=== PATIENT | male | born 1975 | race Caucasian/White ===

== ENCOUNTER 2020-04-11 23:27 | Emergency (ER) | payer OTHER ==
[2020-04-12 00:02] LABS: Absolute Lymphocytes (CBC) 3.3 K/uL (0.7-4.9); Hematocrit 45.6 % (39.6-49.0); Lymphocytes % 36.1 % (15.3-44.8); MPV 7.6 fL (7.6-11.3); RBC Red Blood Cell Count 5.24 M/uL (4.33-5.43)
[2020-04-12 00:17] LABS: ALT/SGPT 42 U/L (12-78); AST/SGOT 19 U/L (15-37); Alkaline Phosphatase 101 U/L (45-117); BUN Blood Urea Nitrogen 14 mg/dL (7-18); Bicarbonate 32 mmol/L (21-32); Bilirubin Direct < 0.1 mg/dL (0-0.2); Bilirubin Total 0.3 mg/dL (0.2-1.0); Glucose Level 93 mg/dL (74-106); Lipase 210 U/L (73-393); Potassium 4.3 mmol/L (3.5-5.1); Sodium Level 141 mmol/L (136-145)
[2020-04-12] MEDS ORDERED: HYDROCORTISONE ACETATE 25MG SUPP PR ONE (00:30)
[2020-04-12] MEDS ORDERED: NA CHLORIDE 0.9% 1,000 ML ONE (00:40)
[2020-04-12 04:08] LABS: Absolute Lymphocytes (CBC) 2.6 K/uL (0.7-4.9); Basophils % 0.7 % (0-1.3); Hematocrit 42.9 % (39.6-49.0); Lymphocytes % 28.2 % (15.3-44.8); RBC Red Blood Cell Count 4.89 M/uL (4.33-5.43)
--- NOTE | 2020-04-12 05:46 | ER ---
Nurse's Notes [facility] Name: Bob Mueller Age: 44 yrs Sex: Male : 1975 Arrival Date: 04/11/2020 Time: 23:31 Bed 2 Private MD: Diagnosis: Rectal bleeding. Prolapsed hemorrhoids Presentation: 04/11 23:43 Chief complaint: Patient states: he has hemorrhoids and supposed to be for sx with Dr jeff Mckoy on Tuesday but feels like it ruptured an hour ago, bleeding with clots was observed while he is on shower. Coronavirus screen: Client denies travel out of the [place] in the last 14 days. Ebola Screen: No symptoms or risks identified at this time. Initial Sepsis Screen: Does the patient meet any 2 criteria? No. Patient's initial sepsis screen is negative. Does the patient have a suspected source of infection? No. Patient's initial sepsis screen is negative. Risk Assessment: Do you want to hurt yourself or someone else? Patient reports no desire to harm self or others. Onset of symptoms was April 11, 2020. 23:43 Method Of Arrival: Ambulatory mg2 23:43 Acuity: KARISHMA 3 mg2 Triage Assessment: 23:45 General: Appears in no apparent distress. comfortable, Behavior is calm, cooperative. mg2 Pain: Complains of pain in anal area. EENT: No signs and/or symptoms were reported regarding the EENT system. Neuro: Level of Consciousness is awake, alert, obeys commands, Oriented to person, place, time, situation. Cardiovascular: Capillary refill < 3 seconds Patient's skin is warm and dry. Respiratory: Airway is patent Respiratory effort is even, unlabored, Respiratory pattern is regular, symmetrical. GI: Reports rectal bleeding. : No signs and/or symptoms were reported regarding the genitourinary system. Derm: Skin is intact, is healthy with good turgor, Skin is pink, warm \T\ dry. normal. Musculoskeletal: Circulation, motion, and sensation intact. Capillary refill < 3 seconds. Historical: - Allergies: 23:45 No Known Allergies; mg2 - Home Meds: 23:45 vitamins [Active]; mg2 - PMHx: 23:45 None; mg2 - PSHx: 23:45 None; mg2 - Immunization history:: Flu vaccine status is unknown. - Social history:: Smoking status: Patient denies any tobacco usage or history of. Patient uses alcohol, only on a social basis. Patient/guardian denies using street drugs, IV drugs. Screenin:46 Abuse screen: Denies threats or abuse. Denies injuries from another. Nutritional mg2 screening: No deficits noted. Tuberculosis screening: No symptoms or risk factors identified. Fall Risk IV access (20 points). Assessment: 23:46 Reassessment: see triage assessment. mg2 04/12 00:30 Reassessment: pressure packing applied on the rectal area. moderate bleeding noted as mg2 the provider was trying to do rectal exam. 01:00 Reassessment: Patient appears in no apparent distress at this time. Patient and/or mg2 family updated on plan of care and expected duration. Pain level reassessed. Patient is alert, oriented x 3, equal unlabored respirations, skin warm/dry/pink. provider advised to observe the patient's rectal bleeding for 3 hours. 02:20 Reassessment: Patient appears in no apparent distress at this time. Patient is alert, rr5 oriented x 3, equal unlabored respirations, skin warm/dry/pink. no complaints made. 03:23 Reassessment: Patient appears in no apparent distress at this time. Patient is alert, rr5 oriented x 3, equal unlabored respirations, skin warm/dry/pink. repeat CBC extracted and sent. no signs of bleeding noted. 04:30 Reassessment: Patient appears in no apparent distress at this time. No changes from rr5 previously documented assessment. 05:12 Reassessment: scant bleeding noted in the rectal area. mg2 05:51 Reassessment: Patient appears in no apparent distress at this time. Patient is alert, rr5 oriented x 3, equal unlabored respirations, skin warm/dry/pink. reassess by ED provider with order for discharge.discharge instruction given and explained without complaints made Patient states feeling better. Patient states symptoms have improved. Vital Signs: 04/11 23:43 BP 142 / 95; Pulse 79; Resp 18; Temp 98.1; Pulse Ox 100% on R/A; Weight 99.79 kg; mg2 Height 5 ft. 9 in. (175.26 cm); Pain 3/10; 04/12 00:54 BP 129 / 79; Pulse 66; Resp 18; Pulse Ox 98% on R/A; mg2 02:30 BP 125 / 80; Pulse 60; Resp 17; Pulse Ox 98% ; rr5 03:22 BP 130 / 82; Pulse 69; Resp 16; Pulse Ox 98% ; rr5 04:26 BP 120 / 74; Pulse 63; Resp 18; Pulse Ox 97% on R/A; mg2 05:52 BP 128 / 75; Pulse 65; Resp 16; Temp 97.9; Pulse Ox 99% ; rr5 04/11 23:43 Body Mass Index 32.49 (99.79 kg, 175.26 cm) mg2 ED Course: 04/11 23:31 Patient arrived in ED. ds1 23:35 Wayne Hess, RN is Primary Nurse. mg2 23:45 Triage completed. mg2 23:45 Arm band placed on. mg2 23:46 Patient has correct armband on for positive identification. Pulse ox on. NIBP on. Door mg2 closed. Warm blanket given. 23:50 Rubén Aquino MD is Attending Physician. pkl 23:53 No provider procedures requiring assistance completed. Inserted saline lock: 18 gauge rr5 in left antecubital area, using aseptic technique. Blood collected. 04/12 04:06 CT Abd/Pelvis - IV Contrast Only In Process Unspecified. EDMS 05:52 IV discontinued, intact, bleeding controlled, No redness/swelling at site. Pressure rr5 dressing applied. Administered Medications: 00:22 Drug: Anusol-HC 25 mg 25 mg Route: OK; mg2 00:52 Follow up: Response: No adverse reaction; Marked relief of symptoms mg2 00:28 Drug: NS 0.9% 500 ml Route: IV; Rate: bolus; Site: left antecubital; mg2 01:30 Follow up: Response: No adverse reaction; IV Status: Completed infusion; IV Intake: rr5 500ml 01:00 Drug: NS 0.9% 500 ml Route: IV; Rate: 125 ml/hr; Site: left antecubital; mg2 05:53 Follow up: Response: No adverse reaction; IV Status: Completed infusion; IV Intake: rr5 500ml Intake: 01:30 IV: 500ml; Total: 500ml. rr5 05:53 IV: 500ml; Total: 1000ml. rr5 Outcome: 05:45 Discharge ordered by . pkl 05:52 Discharged to home ambulatory, with family. rr5 05:52 Condition: stable 05:52 Discharge instructions given to patient, Instructed on discharge instructions, follow up and referral plans. medication usage, Demonstrated understanding of instructions, follow-up care, Prescriptions given X 1. 05:53 Patient left the ED. rr5 Signatures: Dispatcher [employer] EDMS Rubén Aquino MD MD pkl Sanford, Demi ds1 Wayne Hess RN RN mg2 Gareth Ferro RN RN rr5 Corrections: (The following items were deleted from the chart) 04:27 04:26 Pulse 63bpm; Resp 18bpm; Pulse Ox 97% RA; mg2 mg2
--- NOTE | 2020-04-12 05:46 | EDPHYS ---
Physician Documentation [facility] Name: Bob Mueller Age: 44 yrs Sex: Male : 1975 Arrival Date: 04/11/2020 Time: 23:31 Bed 2 Private MD: ED Physician Rubén Aquino HPI: 04/12 00:27 This 44 yrs old Male presents to ER via Ambulatory with complaints of Rectal pkl Bleeding. 00:27 The patient presents to the emergency department with bleeding from the rectum/anus, pkl that is moderate. Onset: The symptoms/episode began/occurred just prior to arrival, 1 hour(s) ago. Patient scheduled for a procedure with Dr. Mckoy on Tuesday04/18/20. Tonight his hemorrhoids ruptured and started having rectal bleeding.. Historical: - Allergies: 04/11 23:45 No Known Allergies; mg2 - Home Meds: 23:45 vitamins [Active]; mg2 - PMHx: 23:45 None; mg2 - PSHx: 23:45 None; mg2 - Immunization history:: Flu vaccine status is unknown. - Social history:: Smoking status: Patient denies any tobacco usage or history of. Patient uses alcohol, only on a social basis. Patient/guardian denies using street drugs, IV drugs. ROS: 04/12 00:27 Eyes: Negative for injury, pain, redness, and discharge, ENT: Negative for injury, pkl pain, and discharge, Neck: Negative for injury, pain, and swelling, Cardiovascular: Negative for chest pain, palpitations, and edema, Respiratory: Negative for shortness of breath, cough, wheezing, and pleuritic chest pain. Abdomen/GI: Positive for rectal bleeding. Back: Negative for acute changes. : Negative for urinary symptoms. MS/extremity: Negative for acute changes. Skin: Negative for rash. Neuro: Negative for altered mental status, loss of consciousness. Exam: 00:27 Head/Face: Normocephalic, atraumatic. Eyes: Pupils equal round and reactive to light, pkl extra-ocular motions intact. Lids and lashes normal. Conjunctiva and sclera are non-icteric and not injected. Cornea within normal limits. Periorbital areas with no swelling, redness, or edema. ENT: Nares patent. No nasal discharge, no septal abnormalities noted. Tympanic membranes are normal and external auditory canals are clear. Oropharynx with no redness, swelling, or masses, exudates, or evidence of obstruction, uvula midline. Mucous membranes moist. Neck: Trachea midline, no thyromegaly or masses palpated, and no cervical lymphadenopathy. Supple, full range of motion without nuchal rigidity, or vertebral point tenderness. No Meningismus. Chest/axilla: Normal chest wall appearance and motion. Nontender with no deformity. No lesions are appreciated. Cardiovascular: Regular rate and rhythm with a normal S1 and S2. No gallops, murmurs, or rubs. Normal PMI, no JVD. No pulse deficits. Respiratory: Lungs have equal breath sounds bilaterally, clear to auscultation and percussion. No rales, rhonchi or wheezes noted. No increased work of breathing, no retractions or nasal flaring. 00:27 Abdomen/GI: Bowel sounds: normal, Palpation: abdomen is soft and non-tender, in all quadrants, Rectal exam: hemorrhoid(s), with associated bleeding, Prolapsed hemorrhoids reduced. Anusol HC suppository inserted. Moderate rectal bleeding noted. Vital Signs: 04/11 23:43 BP 142 / 95; Pulse 79; Resp 18; Temp 98.1; Pulse Ox 100% on R/A; Weight 99.79 kg; mg2 Height 5 ft. 9 in. (175.26 cm); Pain 3/10; 04/12 00:54 BP 129 / 79; Pulse 66; Resp 18; Pulse Ox 98% on R/A; mg2 02:30 BP 125 / 80; Pulse 60; Resp 17; Pulse Ox 98% ; rr5 03:22 BP 130 / 82; Pulse 69; Resp 16; Pulse Ox 98% ; rr5 04:26 BP 120 / 74; Pulse 63; Resp 18; Pulse Ox 97% on R/A; mg2 05:52 BP 128 / 75; Pulse 65; Resp 16; Temp 97.9; Pulse Ox 99% ; rr5 04/11 23:43 Body Mass Index 32.49 (99.79 kg, 175.26 cm) mg2 MDM: 04/11 23:50 Patient medically screened. pkl 04/12 00:50 Data reviewed: vital signs, nurses notes. ED course: Talked to Dr. Mckoy, said he is pkl not human performance consultant and will not be available this weekend.. 05:40 ED course: Patient feeling better. Rectal bleeding controlled. Discussed lab and CT pkl Scan result with patient. Advised to follow up with G.I. or Surgeon of his choice in 1 to 2 days. To return if necessary. Patient understood instructions. 04/11 23:48 Order name: Basic Metabolic Panel; Complete Time: 00:22 mg2 04/11 23:48 Order name: CBC with Diff; Complete Time: 00:22 mg2 04/11 23:48 Order name: Hepatic Function; Complete Time: 00:22 mg2 04/11 23:48 Order name: Lipase; Complete Time: 00:22 mg2 04/12 03:17 Order name: CBC with Diff; Complete Time: 04:33 pkl 04/11 23:48 Order name: IV Saline Lock; Complete Time: 23:48 mg2 04/11 23:48 Order name: Labs collected and sent; Complete Time: 23:48 mg2 04/12 03:17 Order name: CT Abd/Pelvis - IV Contrast Only pkl Administered Medications: 00:22 Drug: Anusol-HC 25 mg 25 mg Route: UT; mg2 00:52 Follow up: Response: No adverse reaction; Marked relief of symptoms mg2 00:28 Drug: NS 0.9% 500 ml Route: IV; Rate: bolus; Site: left antecubital; mg2 01:30 Follow up: Response: No adverse reaction; IV Status: Completed infusion; IV Intake: rr5 500ml 01:00 Drug: NS 0.9% 500 ml Route: IV; Rate: 125 ml/hr; Site: left antecubital; mg2 05:53 Follow up: Response: No adverse reaction; IV Status: Completed infusion; IV Intake: rr5 500ml Disposition: 04/12/20 05:45 Discharged to Home. Impression: Rectal bleeding. Prolapsed hemorrhoids. - Condition is Stable. - Prescriptions for Anusol- HC 25 mg Rectal Suppository - insert 1 suppository by RECTAL route every 12 hours As needed; 20 suppository. - Medication Reconciliation Form, Thank You Letter, Antibiotic Education, Prescription Opioid Use, Work release form form. - Follow up: Private Physician; When: 1 - 2 days; Reason: Re-evaluation by your physician. - Problem is new. - Symptoms have improved. Signatures: Dispatcher [employer] EDMS Rubén Aquino MD MD pkl Wayne Hses, RN RN mg2 Gareth Ferro RN RN rr5 Corrections: (The following items were deleted from the chart) 00:17 04/11 23:49 TYPE AND SCREEN+[id number] ordered. EDTN EDMS 04/12 05:53 05:45 04/12/2020 05:45 Discharged to Home. Impression: Rectal bleeding. Prolapsed rr5 hemorrhoids. Condition is Stable. Forms are Medication Reconciliation Form, Thank You Letter, Antibiotic Education, Prescription Opioid Use. Follow up: Private Physician; When: 1 - 2 days; Reason: Re-evaluation by your physician. Problem is new. Symptoms have improved. pkl
[2020-04-12 06:16] VITALS: BP 128/75; TEMP 97.9; O2SAT 99
--- NOTE | 2020-04-13 13:23 | RAD REPORT ---
EXAM DESCRIPTION: CT - Abdomen Pelvis W Contrast - 04/12/2020 6:41 am CLINICAL HISTORY: The patient is 44 years old and is Male; rectal bleeding TECHNIQUE: Axial computed tomography images of the abdomen and pelvis with intravenous contrast. S agittal and coronal reformatted images were created and reviewed. This CT exam was performed using one or more of the following dose reduction techniques: automated exposure control, adjustment of t he mA and/or kV according to patient size, and/or use of iterative reconstruction technique. COMPARISON: No relevant prior studies available. FINDINGS: LUNG BASES: Unremarkable. No mass. No consolidation. ABDOMEN: LIVER: The liver is mildly fatty. GALLBLADDER AND BILE DUCTS: The gallbladder is contracted. PANCREAS: No ductal dilation. No mass. SPLEEN: Unremarkable. ADRENALS: Unremarkable. No mass. KIDNEYS AND URETERS: Unremarkable. The kidneys enhance symmetrically. No obstructing renal or ure teral calculus is seen. No hydronephrosis or hydroureter. No perinephric fluid or stranding. STOMACH AND BOWEL: The stomach is minimally distended with fluid and air. The small bowel is norm al in caliber. Moderate amount of stool is present throughout the colon. There is no mucosal thickeni ng or evidence of bowel obstruction. PELVIS: APPENDIX: The appendix is normal in caliber without surrounding inflammation. BLADDER: The bladder is moderately distended. REPRODUCTIVE: Unremarkable as visualized. ABDOMEN and PELVIS: INTRAPERITONEAL SPACE: Unremarkable. No free air. No significant fluid collection. BONES/JOINTS: No acute fracture. SOFT TISSUES: The soft tissues are normal. VASCULATURE: Unremarkable. No abdominal aortic aneurysm. LYMPH NODES: Unremarkable. No enlarged lymph nodes. IMPRESSION: No acute findings on this contrasted CT of the abdomen and pelvis to explain the patient 's symptoms. Electronically signed by: Leatha Turner MD 04/12/2020 4:47 AM KAYAKING INSTRUCTOR Due to temporary technical issues with the PACS/Fluency reporting system, reports are being signed by the in house radiologists without review as a courtesy to insure prompt reporting. The interpreting radiologist is fully responsible for the content of the report.
== END 2020-04-12 05:53 | disposition home or self-care (01) ==
LOC: ER 23:27
DX: K64.8 Other hemorrhoids (principal)
CPT/HCPCS: 96361; 85025 ×2; 80048; 36415; 80076; 83690; 74177; 96360; 99284; Q9967; J7030; 86850; 86900; 86901